=== PATIENT | female | born 1935 | race Caucasian/White ===

== ENCOUNTER 2021-10-28 07:46 | Inpatient (IN) ==
[2021-10-28] MEDS ORDERED: Ondansetron 4 MG/2 ML VIAL IVP ONE (08:46)
[2021-10-28 08:48] LABS: Basophils # 0.1 K/mcL (0.0-0.2); Basophils % 0.3 %; Hematocrit 39.5 % (35.3-44.9); Hemoglobin 12.9 g/dL (11.5-15.4); Immature Granulocytes % 0.3 % (0-4); Lymphocytes # 13.3 K/mcL (0.6-4.6); Lymphocytes % 56.2 %; Mean Corpuscular HGB Conc 32.7 g/dL (31.6-35.5); Mean Corpuscular Volume 91.9 fL (83.0-100.0); Mean Platelet Volume 11.2 fL (9.4-12.4); Monocytes # 0.9 K/mcL (0.0-1.3); Monocytes % 3.8 %; Neutrophils # 8.4 K/mcL (1.6-8.9); Platelet Count 227 K/mcL (140-400); Red Cell Distribution Width 13.5 % (11.5-14.5); Segmented Neutrophils % 35.4 %; White Blood Count 23.7 K/mcL (4.3-11.1)
[2021-10-28 09:04] LABS: Calcium 8.8 mg/dL (8.6-10.3); Potassium 3.9 mEq/L (3.5-5.1)
[2021-10-28] MEDS ORDERED: Ketorolac 30 MG/ML VIAL IVP ONE (09:10)
[2021-10-28] MEDS ORDERED: Iopamidol - 370 500 ML MLS IVP ONE (09:11)
[2021-10-28 09:20] LABS: Amorphous Sediment,Urine Few per hpf (None-Few); Bacteria,Urine Few per hpf (None-Few); Bilirubin,Urine Negative (Negative); Blood,Urine Large (Negative); Clarity,Urine Ex.Turbid (Clear); Color,Urine Yellow (Yellow); Glucose,Urine (UA) Normal (Normal); Ketones,Urine Negative (Negative); Leukocyte Esterase,Urine Large (Negative); Mucus,Urine Few per lpf (None-Few); Nitrite,Urine Positive (Negative); PH,Urine 6.5 pH Units (5.0-8.0); Protein,Urine >=300 mg/dL (Neg-Trace); RBC,Urine TNTC per hpf (0-3); Specific Gravity,Urine 1.017 (1.010-1.025); Squamous Epithelial Cell,Urine Moderate per hpf (None-Few); Urobilinogen,Urine Normal (Normal); WBC,Urine TNTC per hpf (0-3)
[2021-10-28 09:26] LABS: Platelet Estimate Normal (Normal); Reactive Lymphocytes Present (Not Present)
[2021-10-28] MEDS ORDERED: cefTRIAXone 1,000 MG in Water for inj. (sterile) 10 ML IVP ONE (10:22)
[2021-10-28] MEDS ORDERED: Naloxone 0.4 MG/ML INJ IVP PRN (11:13)
[2021-10-28] MEDS ORDERED: Acetaminophen 325 MG TABLET PO PRN (11:13)
[2021-10-28] MEDS ORDERED: Ondansetron 4 MG/2 ML VIAL IVP PRN (11:13)
[2021-10-28] MEDS ORDERED: Melatonin 3 MG TABLET PO PRN (11:13)
[2021-10-28] MEDS ORDERED: MOM Conc 10 ML UD.LIQ PO PRN (11:13)
[2021-10-28] MEDS: 0.9 % Sodium Chloride 1,000 ML IVC SCH (13:02)
[2021-10-29] MEDS: 0.9 % Sodium Chloride 1,000 ML IVC SCH (02:38)
[2021-10-29] MEDS: *HR* Enoxaparin 40 MG/0.4 ML SYRINGE SQ SCH (06:00)
[2021-10-29 08:16] LABS: Basophils % 0.3 %; Eosinophils % 4.7 %; Immature Granulocytes % 0.2 % (0-4); Lymphocytes # 10.6 K/mcL (0.6-4.6); Lymphocytes % 66.6 %; Mean Corpuscular HGB Conc 32.7 g/dL (31.6-35.5); Mean Corpuscular Hemoglobin 30.3 pg (28.0-33.3); Mean Corpuscular Volume 92.7 fL (83.0-100.0); Mean Platelet Volume 10.9 fL (9.4-12.4); Monocytes # 0.7 K/mcL (0.0-1.3); Monocytes % 4.5 %; Neutrophils # 3.8 K/mcL (1.6-8.9); Platelet Count 173 K/mcL (140-400); Red Blood Count 3.56 M/mcL (3.82-4.97); Red Cell Distribution Width 13.3 % (11.5-14.5); Segmented Neutrophils % 23.7 %; White Blood Count 15.9 K/mcL (4.3-11.1)
[2021-10-29 08:23] LABS: Basophils # 0.1 K/mcL (0.0-0.2); Eosinophils # 0.8 K/mcL (0.0-0.6); Hemoglobin 10.8 g/dL (11.5-15.4)
[2021-10-29 08:37] LABS: BUN/Creatinine Ratio 23 (6-26); Blood Urea Nitrogen 12 mg/dL (8-23); Calcium 7.8 mg/dL (8.6-10.3); Carbon Dioxide 27 mEq/L (23-29); Chloride 108 mEq/L (98-107); Glucose 85 mg/dL (70-105); Osmolality,Calculated 289 (280-300); Potassium 3.6 mEq/L (3.5-5.1); Sodium 140 mEq/L (136-145)
[2021-10-29] MEDS: cefTRIAXone 1,000 MG in Water for inj. (sterile) 10 ML IVP SCH (08:39)
[2021-10-30 02:18] LABS: Basophils # 0.1 K/mcL (0.0-0.2); Basophils % 0.4 %; Eosinophils # 0.2 K/mcL (0.0-0.6); Eosinophils % 1.5 %; Hematocrit 34.8 % (35.3-44.9); Hemoglobin 11.2 g/dL (11.5-15.4); Immature Granulocytes % 0.2 % (0-4); Lymphocytes # 10.9 K/mcL (0.6-4.6); Mean Corpuscular HGB Conc 32.2 g/dL (31.6-35.5); Mean Corpuscular Hemoglobin 29.8 pg (28.0-33.3); Mean Corpuscular Volume 92.6 fL (83.0-100.0); Mean Platelet Volume 11.4 fL (9.4-12.4); Monocytes # 0.7 K/mcL (0.0-1.3); Monocytes % 4.2 %; Neutrophils # 3.7 K/mcL (1.6-8.9); Platelet Count 178 K/mcL (140-400); Red Blood Count 3.76 M/mcL (3.82-4.97); Red Cell Distribution Width 13.4 % (11.5-14.5); Segmented Neutrophils % 23.7 %; White Blood Count 15.6 K/mcL (4.3-11.1)
[2021-10-30 02:43] LABS: Calcium 8.2 mg/dL (8.6-10.3); Potassium 3.8 mEq/L (3.5-5.1)
[2021-10-30 03:03] LABS: Reactive Lymphocytes Present (Not Present); Smudge Cells Present (Not Present)
[2021-10-30 03:04] LABS: Platelet Estimate Normal (Normal)
[2021-10-30 04:25] VITALS: O2SAT 93
[2021-10-30] MEDS: *HR* Enoxaparin 40 MG/0.4 ML SYRINGE SQ SCH (06:07)
[2021-10-30 07:11] VITALS: BP 128/49; PULSE 56; TEMP 98
[2021-10-30] MEDS: cefTRIAXone 1,000 MG in Water for inj. (sterile) 10 ML IVP SCH (08:24)
== END 2021-10-30 10:24 | disposition home or self-care (01) | DRG 690 ==
LOC: 3ANU 07:46 → EMEROOARM 07:46 → SUATTDRO 11:23 → 3ANU 12:24
PROVIDERS: ADMIT Internal Medicine; ATTEND Internal Medicine